=== PATIENT | female | born 1960 | race Hispanic/Latino ===

== ENCOUNTER 2020-12-31 11:09 | Observation (INO) | payer MEDICAID ==
[~2020-12-31] VITALS: Ht 154.9 cm; Wt 70.6 kg
[2020-12-31 11:10] VITALS: BP 176/80
[2020-12-31 14:01] LABS: BASOPHILS % (AUTO) 0.3 % (0.0-5.0); EOSINOPHILS % (AUTO) 0.3 % (0.0-8.0); HEMATOCRIT 37.9 % (36-48); LYMPHOCYTES % (AUTO) 17.9 % (21.0-51.0); MEAN CORPUSCULAR HGB CONC 35.9 g/dL (32.0-36.0); MEAN CORPUSCULAR VOLUME 89.2 fL (79-99); MONOCYTES % (AUTO) 5.8 % (3.0-13.0); NEUTROPHILS % (AUTO) 75.4 % (40.0-77.0); PLATELET COUNT (AUTO) 267 K/uL (130-400); RED BLOOD CELL COUNT(AUTO) 4.25 MIL/uL (4.00-5.50); RED CELL DISTRIBUTION WIDTH 11.9 % (11.0-15.5); WHITE BLOOD COUNT (AUTO) 17.4 K/uL (4.8-10.8)
[2020-12-31 14:08] LABS: CREATININE 0.7 mg/dL (0.5-1.5); POTASSIUM 3.7 mmol/L (3.5-5.1)
[2020-12-31 14:13] LABS: APPEARANCE,URINE Clear (CLEAR); BILIRUBIN,URINE Negative (NEGATIVE); COLOR,URINE Yellow (YELLOW); GLUCOSE, URINE (UA) Negative (NEGATIVE); KETONES,URINE Negative (NEGATIVE); LEUKOCYTE ESTERASE ,URINE Negative (NEGATIVE); NITRATE,URINE Negative (NEGATIVE); OCCULT BLOOD,URINE Trace (NEGATIVE); PH,URINE 6.5 (5.0-8.0); PROTEIN,URINE POS 1+ mg/dL (NEGATIVE); UROBILINOGEN,URINE 0.2 mg/dL (0.2-1.0)
[2020-12-31 14:15] LABS: ALBUMIN 4.2 g/dL (3.5-5.0); BILIRUBIN,TOTAL 1.2 mg/dL (0.2-1.0); TOTAL PROTEIN, SERUM 8.4 g/dL (6.0-8.3)
[2020-12-31 14:19] LABS: BACTERIA,URINE Rare /HPF (None Seen); SQUAMOUS EPITHELIAL CELL,UR Rare /HPF (0-2); WBC,URINE 0-1 /HPF (0-1)
[2020-12-31 16:21] VITALS: BP 138/71
[2020-12-31] MEDS ORDERED: MORPHINE 5 MG/ML VIAL (5MG OR GREATER DOSE) IV ONE (16:45)
[2020-12-31] MEDS ORDERED: KETOROLAC 15MG/ML VIAL (15MG/ML) IV ONE (16:45)
[2020-12-31] MEDS ORDERED: ONDANSETRON HCL 4 MG/2 ML VIAL IVP ONE (16:45)
[2020-12-31 18:34] VITALS: BP 147/86
[2020-12-31] MEDS ORDERED: ACETAMINOPHEN 325 MG TAB PO PRN (19:30)
[2020-12-31] MEDS ORDERED: DEXTROSE 50%-WATER 50 ML DISP.SYRIN IV PRN (19:30)
[2020-12-31] MEDS ORDERED: LACTULOSE 20 GM/30 ML UDCUP PO PRN (19:30)
[2020-12-31] MEDS ORDERED: GUAIFENESIN-DM 200/20 MG 10 ML PO PRN (19:30)
[2020-12-31] MEDS ORDERED: HYDRALAZINE HCL 20 MG/ML VIAL IV PRN (19:30)
[2020-12-31] MEDS ORDERED: ALBUTEROL SULFATE 0.083% 2.5 MG/3 ML INH IH PRN (19:30)
[2020-12-31] MEDS ORDERED: NITROGLYCERIN 0.4 MG SL TAB SL PRN (19:30)
[2020-12-31] MEDS ORDERED: GLUCAGON 1MG KIT 1 MG ML IM PRN (19:30)
[2020-12-31] MEDS ORDERED: ACETAMINOPHEN-CODEINE 300/30MG TAB PO PRN (19:30)
[2020-12-31] MEDS ORDERED: MAG HYDROX/AL HYDROX/SIMETH ES 30 ML SUSP UDCUP PO PRN (19:30)
[2020-12-31] MEDS ORDERED: DIPHENHYDRAMINE HCL 25 MG CAPSULE PO PRN (19:30)
[2020-12-31] MEDS: SODIUM CHLORIDE 0.9% 1000ML 1,000 ML IV SCH (20:07)
[2020-12-31] MEDS: LEVOFLOXACIN 500 MG/D5W 100 ML 100 ML IV SCH (20:07)
[2020-12-31 20:17] LABS: HEMOGLOBIN A1C 7.1 % (4.0-6.0)
[2020-12-31 20:25] VITALS: BP 110/59
[2020-12-31] MEDS: INSULIN HUMULIN R 100 UNIT/ML 3ML SQ SCH (21:00)
[2020-12-31] MEDS: METRONIDAZOLE 500MG/100ML BAG 100 ML IVPB SCH (23:03)
[2020-12-31] MEDS: MORPHINE 4 MG SYG (4MG/1ML) IV PRN (23:04)
[2020-12-31] MEDS: ONDANSETRON HCL 4 MG/2 ML VIAL IV PRN (23:05)
[2021-01-01] VITALS (12 sets, daily range): BP systolic 110–154; BP diastolic 56–73
[2021-01-01] MEDS: METRONIDAZOLE 500MG/100ML BAG 100 ML IVPB SCH ×3 (07:08→22:28)
[2021-01-01] MEDS: INSULIN HUMULIN R 100 UNIT/ML 3ML SQ SCH ×3 (07:30→16:30)
[2021-01-01] MEDS: ONDANSETRON HCL 4 MG/2 ML VIAL IV PRN (07:55)
[2021-01-01] MEDS: MORPHINE 4 MG SYG (4MG/1ML) IV PRN (07:55)
[2021-01-01] MEDS: PANTOPRAZOLE 40 MG/VIAL IVP SCH (08:04)
[2021-01-01] MEDS ORDERED: ENOXAPARIN SODIUM 40 MG/0.4 ML SYRINGE SQ SCH (09:00)
[2021-01-01 10:12] LABS: BASOPHILS % (AUTO) 0.5 % (0.0-5.0); EOSINOPHILS % (AUTO) 1.4 % (0.0-8.0); HEMATOCRIT 32.9 % (36-48); LYMPHOCYTES % (AUTO) 19.3 % (21.0-51.0); MEAN CORPUSCULAR HEMOGLOBIN 31.6 pg (27.0-33.0); MEAN CORPUSCULAR VOLUME 92.9 fL (79-99); MONOCYTES % (AUTO) 5.4 % (3.0-13.0); PLATELET COUNT (AUTO) 195 K/uL (130-400); RED BLOOD CELL COUNT(AUTO) 3.54 MIL/uL (4.00-5.50); RED CELL DISTRIBUTION WIDTH 11.9 % (11.0-15.5); WHITE BLOOD COUNT (AUTO) 12.8 K/uL (4.8-10.8)
[2021-01-01 10:20] LABS: CREATININE 0.8 mg/dL (0.5-1.5); MAGNESIUM 1.9 mg/dL (1.80-2.40); POTASSIUM 3.4 mmol/L (3.5-5.1)
[2021-01-01] MEDS ORDERED: POTASSIUM CHLORIDE 10% ELIXIR 20 MEQ/15 ML UDCUP PO SCH (12:00)
[2021-01-01] MEDS ORDERED: METF-444 PO (13:06)
[2021-01-01] MEDS ORDERED: ATEN25TA PO (13:06)
[2021-01-01] MEDS ORDERED: CYAN500T9 PO (13:06)
[2021-01-01] MEDS ORDERED: L.AC1CAP6 PO (13:06)
[2021-01-01] MEDS ORDERED: ALLO100T PO (13:06)
[2021-01-01] MEDS ORDERED: SIMV10TA97 PO (13:06)
[2021-01-01] MEDS ORDERED: LORA10TA7 PO (13:06)
[2021-01-01] MEDS ORDERED: CHOL-34 PO (13:06)
[2021-01-01] MEDS ORDERED: PEG 3350/NA SULF,BICARB,CL/KCL 4000 ML SOLN PO SCH (14:30)
[2021-01-01] MEDS: LEVOFLOXACIN 500 MG/D5W 100 ML 100 ML IV SCH (18:56)
[2021-01-01] MEDS: SODIUM CHLORIDE 0.9% 1000ML 1,000 ML IV SCH (22:29)
[2021-01-02] VITALS (19 sets, daily range): BP systolic 91–157; BP diastolic 49–79
[2021-01-02 05:37] LABS: BASOPHILS % (AUTO) 0.4 % (0.0-5.0); EOSINOPHILS % (AUTO) 2.1 % (0.0-8.0); LYMPHOCYTES % (AUTO) 28.1 % (21.0-51.0); MEAN CORPUSCULAR HEMOGLOBIN 30.7 pg (27.0-33.0); MEAN CORPUSCULAR HGB CONC 34.2 g/dL (32.0-36.0); MEAN CORPUSCULAR VOLUME 89.9 fL (79-99); PLATELET COUNT (AUTO) 203 K/uL (130-400); RED BLOOD CELL COUNT(AUTO) 3.45 MIL/uL (4.00-5.50); RED CELL DISTRIBUTION WIDTH 11.9 % (11.0-15.5)
[2021-01-02 05:42] LABS: CREATININE 0.6 mg/dL (0.5-1.5); POTASSIUM 3.3 mmol/L (3.5-5.1)
[2021-01-02] MEDS: METRONIDAZOLE 500MG/100ML BAG 100 ML IVPB SCH ×3 (05:58→22:16)
[2021-01-02] MEDS ORDERED: MIDAZOLAM HCL 1 MG/ML 2ML VIAL ONE (07:45)
[2021-01-02] MEDS ORDERED: PROPOFOL 10 MG/ML 20ML VIAL IV ONE (07:45)
[2021-01-02] MEDS ORDERED: POTASSIUM CHLORIDE 20MEQ/100ML 100 ML IV PRN ×2 (09:00→11:15)
[2021-01-02] MEDS: PANTOPRAZOLE 40 MG/VIAL IVP SCH (10:06)
[2021-01-02] MEDS ORDERED: LIDOCAINE HCL-MPF 1% 2ML VIAL IV PRN (11:15)
[2021-01-02] MEDS ORDERED: KCL 20 MEQ ERTAB PO PRN (11:15)
[2021-01-02] MEDS ORDERED: POTASSIUM CHLORIDE 10% ELIXIR 20 MEQ/15 ML UDCUP PO PRN (11:15)
[2021-01-02] MEDS ORDERED: LEVOFLOXACIN 500 MG/D5W 100 ML 100 ML IV SCH (20:00)
[2021-01-02] MEDS ORDERED: SIMVASTATIN 10 MG TABLET PO SCH (21:00)
[2021-01-02] MEDS ORDERED: MORPHINE 2 MG SYG (2MG/1ML) ONE (22:53)
[2021-01-02] MEDS ORDERED: ACETAMINOPHEN-CODEINE 300/30MG TAB PO PRN (23:00)
[2021-01-02] MEDS ORDERED: MORPHINE 2 MG SYG (2MG/1ML) IVP PRN (23:00)
[2021-01-03 04:00] VITALS: BP 160/61
[2021-01-03 05:39] LABS: BASOPHILS % (AUTO) 0.4 % (0.0-5.0); EOSINOPHILS % (AUTO) 4.5 % (0.0-8.0); HEMATOCRIT 30.1 % (36-48); MEAN CORPUSCULAR HEMOGLOBIN 31.7 pg (27.0-33.0); MEAN CORPUSCULAR HGB CONC 35.2 g/dL (32.0-36.0); MEAN CORPUSCULAR VOLUME 90.1 fL (79-99); MONOCYTES % (AUTO) 6.6 % (3.0-13.0); NEUTROPHILS % (AUTO) 53.2 % (40.0-77.0); PLATELET COUNT (AUTO) 203 K/uL (130-400); RED BLOOD CELL COUNT(AUTO) 3.34 MIL/uL (4.00-5.50); RED CELL DISTRIBUTION WIDTH 11.9 % (11.0-15.5); WHITE BLOOD COUNT (AUTO) 7.8 K/uL (4.8-10.8)
[2021-01-03 05:55] LABS: CREATININE 0.7 mg/dL (0.5-1.5); MAGNESIUM 1.8 mg/dL (1.80-2.40)
[2021-01-03] MEDS: METRONIDAZOLE 500MG/100ML BAG 100 ML IVPB SCH ×2 (06:11→13:58)
[2021-01-03] MEDS ORDERED: METFORMIN HCL 500 MG TABLET PO SCH (08:00)
[2021-01-03 08:03] VITALS: BP 155/77
[2021-01-03] MEDS: PANTOPRAZOLE 40 MG/VIAL IVP SCH (08:30)
[2021-01-03] MEDS ORDERED: ALLOPURINOL 100 MG TABLET PO SCH (09:00)
[2021-01-03] MEDS ORDERED: **HM**(Cholecalciferol (Vitamin D3) (Vitamin D3) 25 MCG PO SCH (09:00)
[2021-01-03] MEDS ORDERED: CYANOCOBALAMIN (VITAMIN B-12) 1,000 MCG TABLET PO SCH (09:00)
[2021-01-03] MEDS ORDERED: LORATADINE 10 MG TABLET PO SCH (09:00)
[2021-01-03] MEDS ORDERED: **HM**(L.acidoph & Paracasei,B.lactis (Probiotic) 1 EACH PO SCH (09:00)
[2021-01-03] MEDS ORDERED: ACETAMINOPHEN 325 MG TAB PO PRN (11:15)
[2021-01-03] MEDS ORDERED: KETOROLAC 15MG/ML VIAL (15MG/ML) IV SCH (11:15)
[2021-01-03 11:20] VITALS: BP 163/74
[2021-01-03 16:00] VITALS: BP 135/74
== END 2021-01-03 18:02 | disposition home or self-care (01) ==
LOC: EDH 11:09 → EDHIP 11:10 → 3AH 01-01 20:44
PROVIDERS: ADMIT Internal Medicine; ATTEND Internal Medicine
DX: K63.3 Ulcer of intestine (principal); R93.3 Abnormal findings on diagnostic imaging of other parts of digestive tract; D72.829 Elevated white blood cell count, unspecified; E86.0 Dehydration; E11.9 Type 2 diabetes mellitus without complications; E78.5 Hyperlipidemia, unspecified; I10 Essential (primary) hypertension; G47.33 Obstructive sleep apnea (adult) (pediatric); E86.1 Hypovolemia; E87.6 Hypokalemia; M10.9 Gout, unspecified; Z87.442 Personal history of urinary calculi; Z90.710 Acquired absence of both cervix and uterus; Z79.899 Other long term (current) drug therapy
CPT/HCPCS: 36415 ×4; 45380; 74176; 80048 ×3; 80053; 81001; 82948 ×10; 83036; 83605 ×2; 83690; 83735 ×2; 84145; 85025 ×4; 87040 ×2; 94660; 94664; 96365; 96366 ×4; 96368; 96372; 96375 ×2; 96376 ×4; 99284; A4215; A4606; A4620; A4657; C9113 ×3; G0378 ×68; J1650; J1885 ×2; J1956 ×3; J2250; J2270 ×4; J2405 ×4; J2704; J3490 ×9